=== PATIENT | male | born 1990 | race African-American/Black ===

== ENCOUNTER 2019-01-13 16:25 | Emergency (ER) | payer OTHER ==
[2019-01-13] MEDS ORDERED: KETOROLAC TROMETHAMINE 60 MG/2 ML SDV IM ONE (16:56)
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
[2019-01-13 17:53] LABS: A TYPE INFLUENZA AG NEGATIVE (NEGATIVE); B INFLUENZA AG NEGATIVE (NEGATIVE)
[2019-01-13 18:21] VITALS: BP 148/82
== END 2019-01-13 18:23 | disposition home or self-care (01) ==
LOC: ER 16:25
DX: J02.9 Acute pharyngitis, unspecified (principal); J06.9 Acute upper respiratory infection, unspecified; R09.81 Nasal congestion; R05 Cough; R50.9 Fever, unspecified; M79.10 Myalgia, unspecified site
CPT/HCPCS: 99283; 96372; 87070; 87880; 87804; J1885

== ENCOUNTER 2019-05-29 10:34 | Emergency (ER) | payer OTHER ==
[2019-05-29 10:57] VITALS: BP 153/95
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
== END 2019-05-29 12:23 | disposition home or self-care (01) ==
LOC: ER 10:34
DX: J02.0 Streptococcal pharyngitis (principal)
CPT/HCPCS: 87880; 99283

== ENCOUNTER 2019-06-17 11:23 | Emergency (ER) | payer OTHER ==
[2019-06-17] MEDS ORDERED: DIPH/PERTUSS(ACELL)/TETANUS VAC/PF 0.5 ML SYR (>=10YO) IM ONE (11:32)
[2019-06-17] MEDS ORDERED: BUPIVACAINE HCL 0.5 % INJ/PF 30 ML SDV INJ ONE (11:39)
--- NOTE | 2019-06-17 11:41 | ER Document Report ---
HPI - HPI Patient complains to provider of: Finger injury Time Seen by Provider: 06/17/19 11:27 Onset: Just prior to arrival Onset/Duration: Sudden Pain Level: Denies Context: Patient states that he got angry and hit a jar on his dresser that broke. Patient with laceration to the right third finger. Patient is right-hand dominant and uncertain with his last tetanus immunization was. Exacerbated by: Movement Relieved by: Denies Similar symptoms previously: No Recently seen / treated by doctor: No - ROS ROS below otherwise negative: Yes Systems Reviewed and Negative: Yes All other systems reviewed and negative - NEURO Neurology: DENIES: Weakness - GASTROINTESTINAL Gastrointestinal: DENIES: Nausea - MUSCULOSKELETAL Musculoskeletal: DENIES: Extremity pain - DERM Skin Color: Normal Skin Problems: Laceration Past Medical History - General Information source: Patient - Social History Smoking Status: Never Smoker Chew tobacco use (# tins/day): No Frequency of alcohol use: Occasional Drug Abuse: Marijuana Lives with: Family Family History: Reviewed & Not Pertinent Patient has homicidal ideation: No Psychiatric Medical History: Reports: Hx Depression Surgical Hx: Negative - Immunizations Hx Diphtheria, Pertussis, Tetanus Vaccination: No Vertical Provider Document - CONSTITUTIONAL Agree With Documented VS: Yes Exam Limitations: No Limitations General Appearance: WD/WN, No Apparent Distress - INFECTION CONTROL TRAVEL OUTSIDE OF THE [place] IN LAST 30 DAYS: No - HEENT HEENT: Atraumatic, Normocephalic - NECK Neck: Normal Inspection, Supple - RESPIRATORY Respiratory: Breath Sounds Normal, No Respiratory Distress - CARDIOVASCULAR Cardiovascular: Regular Rhythm, No Murmur, Tachycardia Pulses: Normal: Radial - MUSCULOSKELETAL/EXTREMETIES Musculoskeletal/Extremeties: CECY, FROM Notes: No tendon deficit to the right third finger, normal strength against resistance with flexion and extension - NEURO Level of Consciousness: Awake, Alert - Patient anxious when looking at wound Motor/Sensory: No Motor Deficit - DERM Integumentary: Warm, Dry, Laceration - 5 cm Laceration to right third finger, with nail involvement, bleeding controlled with dressing Course - Vital Signs Vital signs: Temp Pulse Resp BP Pulse Ox 98.8 F 108 H 16 127/94 H 100 06/17/19 11:32 06/17/19 11:27 06/17/19 11:27 06/17/19 11:27 06/17/19 11:27 - Diagnostic Test Radiology reviewed: Image reviewed, Reports reviewed Procedures - Laceration/Wound Repair Right Finger 3rd digit Wound length (cm): 5 Wound's Depth, Shape: Irregular, Flap Anesthetic type: 0.5% Bupivacaine Wound explored: Clean Wound Repaired With: Sutures Suture Size/Type: 5:0, Nylon Number of Sutures: 11 Layer Closure?: No Post-procedure wound care: Sterile dressing applied Post-procedure NV exam normal: Yes Complications: No Discharge - Discharge Clinical Impression: Finger laceration Qualifiers: Encounter type: initial encounter Finger: middle finger Damage to nail status: with damage Foreign body presence: without foreign body Laterality: right Qualified Code(s): S61.312A - Laceration without foreign body of right middle finger with damage to nail, initial encounter Condition: Stable Disposition: HOME, SELF-CARE Instructions: Dressing Instructions for Open Wounds ([facility]), Laceration Care ([facility]), Tetanus Immunization Given ([facility]) Additional Instructions: Return immediately for any new or worsening symptoms: Redness, streaks, pus, fever or any concerning new symptoms Followup with your primary care provider, call tomorrow to make a followup appointment Suture removal in 10 days Referrals: [facility] [Primary Care [facility]] - Follow up as needed
--- NOTE | 2019-06-17 12:23 | RADIOLOGY REPORT (SQ) ---
EXAM DESCRIPTION: FINGER RIGHT IMAGES COMPLETED DATE/TIME: 06/17/2019 11:48 am REASON FOR STUDY: finger injury with lac, ?FB COMPARISON: None. NUMBER OF VIEWS: Three views. TECHNIQUE: AP, lateral, and oblique images acquired of the right third finger. LIMITATIONS: None. FINDINGS: MINERALIZATION: Normal. BONES: No acute fracture or dislocation. No worrisome bone lesions. SOFT TISSUES: Soft tissue laceration along the radial aspect of the distal 3rd digit. No radiopaque foreign body. OTHER: No other significant finding. IMPRESSION: Laceration along the roof radial aspect of the distal 3rd digit. No acute bony abnormal ity. No radiopaque foreign body. COMMENT: SITE OF TRAUMA/COMPLAINT MARKED/STAMP COMPLETED: NO. TECHNICAL DOCUMENTATION: JOB ID: [id number] 2010 [employer]- All Rights Reserved Reading location - IP/workstation name: [email or web address]
[2019-06-17 13:07] VITALS: BP 126/86
== END 2019-06-17 13:15 | disposition home or self-care (01) ==
LOC: ER 11:23
DX: S61.312A Laceration without foreign body of right middle finger with damage to nail, initial encounter (principal); W18.02XA Striking against glass with subsequent fall, initial encounter; Y92.009 Unspecified place in unspecified non-institutional (private) residence as the place of occurrence of the external cause; Z23 Encounter for immunization
CPT/HCPCS: 99283; 90471; 73140; 90715; 12002; J3490

== ENCOUNTER 2019-07-05 15:16 | Emergency (ER) | payer OTHER ==
[2019-07-05 15:26] VITALS: BP 149/88
--- NOTE | 2019-07-05 16:07 | ER Document Report ---
HPI - HPI Patient complains to provider of: suture wound recheck Time Seen by Provider: 07/05/19 16:02 Onset: Other Onset/Duration: Sudden Pain Level: 1 Context: 29-year-old male presents to the emergency department with report that up June 16 he cut his right middle finger on a jar. He was treated with sutures here in the emergency department. He reports this past Saturday he had the sutures removed at the [place]. He reports yesterday he noticed some drainage from the site. His aunt looked at the finger and thought it might be infected. He denies fever vomiting diarrhea. Denies pain to the finger. No drainage today. Is right-handed. Associated Symptoms: None Exacerbated by: Denies Relieved by: Denies Similar symptoms previously: No Recently seen / treated by doctor: Yes - REPRODUCTIVE Reproductive: DENIES: : - MUSCULOSKELETAL Musculoskeletal: REPORTS: Extremity pain Past Medical History - General Information source: Patient - Social History Smoking Status: Never Smoker Chew tobacco use (# tins/day): No Frequency of alcohol use: None Drug Abuse: None Family History: Reviewed & Not Pertinent Patient has homicidal ideation: No Psychiatric Medical History: Reports: Hx Depression Surgical Hx: Negative - Immunizations Hx Diphtheria, Pertussis, Tetanus Vaccination: No Vertical Provider Document - CONSTITUTIONAL Agree With Documented VS: Yes Exam Limitations: No Limitations General Appearance: WD/WN, No Apparent Distress - INFECTION CONTROL TRAVEL OUTSIDE OF THE [place] IN LAST 30 DAYS: No - HEENT HEENT: Atraumatic, Normocephalic - NECK Neck: Supple - RESPIRATORY Respiratory: No Respiratory Distress - CARDIOVASCULAR Cardiovascular: Regular Rate - MUSCULOSKELETAL/EXTREMETIES Musculoskeletal/Extremeties: MAEW, FROM, Non-Tender - Right middle finger palmar side with healing laceration noted. Site benign no erythema no swelling no warmth no redness, no discharge. Cap refill less than 2 seconds radial pulse 3+ - NEURO Level of Consciousness: Awake, Alert, Appropriate Motor/Sensory: No Motor Deficit - DERM Integumentary: Warm, Dry Course - Re-evaluation Re-evalutation: 07/05/19 16:10 Patient presents with concerned that his right middle finger may be infected. He reports he received sutures here June 16 after he cut his finger on a jar. He recently had the sutures removed at the [place] office June 30. He reports yesterday some drainage from the site. No drainage today. Finger looks benign no erythema no swelling no warmth with healing wound noted. Patient was instructed on the importance of keeping the finger clean and continue to monitor for signs of infection. He was instructed on signs and symptoms of infection. He was also instructed to return here immediately for any of those signs and [facility]. He verbalized understanding to all instructions. - Vital Signs Vital signs: Temp Pulse Resp BP Pulse Ox 98.7 F 99 149/88 H 95 07/05/19 16:01 07/05/19 15:24 07/05/19 15:24 07/05/19 15:24 Discharge - Discharge Clinical Impression: finger suture wound check Condition: Stable Disposition: HOME, SELF-CARE Additional Instructions: *You have been evaluated for laceration suture wound recheck *Continue to monitor your finger for any signs of infection such as redness swelling warmth pain *Keep your finger clean as discussed *[facility] *Return to the emergency department for any signs of infection as discussed, concerns, needs Referrals: [facility] [Primary Care [facility]] - Follow up in 1 week
== END 2019-07-05 16:06 | disposition home or self-care (01) ==
LOC: ER 15:16
DX: S61.212D Laceration without foreign body of right middle finger without damage to nail, subsequent encounter (principal); W25.XXXD Contact with sharp glass, subsequent encounter
CPT/HCPCS: 99282

== ENCOUNTER 2019-09-03 09:27 | Emergency (ER) | payer OTHER ==
[2019-09-03] MEDS ORDERED: IBUPROFEN 800 MG TABLET PO ONE (10:44)
--- NOTE | 2019-09-03 10:46 | ER Document Report ---
ED Medical Screen (RME) - General Chief Complaint: Abscess Stated Complaint: SHOULDER ABSCESS Time Seen by Provider: 09/03/19 10:44 Primary Care Provider: [facility] [Primary Care Provider] - Follow up as needed Mode of Arrival: Ambulatory Information source: Patient Notes: 29-year-old male presented to ED for abscess to the right upper arm. He states he had a hair bump about 4 days ago and was messing with it and then it became much larger. He states his girlfriend was then putting hot rags on it and it was draining pus but then yesterday it stopped draining and became much larger and more painful. He states it is a level 3 out of 5 achy pain. He states he did take 800 ibuprofen yesterday but has not had anything today so we will give him 800 mg of ibuprofen this morning. He will need an I&D and antibiotics for this abscess. I have greeted and performed a rapid initial assessment of this patient. A comprehensive ED assessment and evaluation of the patient, analysis of test results and completion of medical decision making process will be conducted by an additional ED providers. TRAVEL OUTSIDE OF THE [place] IN LAST 30 DAYS: No - Related Data Allergies/Adverse Reactions: No Known Drug Allergies Adverse Reaction (Verified 07/05/19 16:00) Past Medical History Psychiatric Medical History: Reports: Hx Depression - Immunizations Hx Diphtheria, Pertussis, Tetanus Vaccination: No Physical Exam - Vital signs Vitals: Temp Pulse Resp BP Pulse Ox 99.3 F 102 H 20 144/95 H 100 09/03/19 09:31 09/03/19 09:31 09/03/19 09:31 09/03/19 09:31 09/03/19 09:31 Course - Vital Signs Vital signs: Temp Pulse Resp BP Pulse Ox 99.3 F 102 H 20 144/95 H 100 09/03/19 09:31 09/03/19 09:31 09/03/19 09:31 09/03/19 09:31 09/03/19 09:31 Doctor's Discharge - Discharge Referrals: [facility] [Primary Care [facility]] - Follow up as needed
[2019-09-03] MEDS ORDERED: SULFAMETHOXAZOLE/TRIMETHOPRIM 800-160 MG TABLET PO ONE (11:33)
[2019-09-03] MEDS ORDERED: LIDOCAINE 1% INJ-PF (10 MG/ML) 30 ML SDV INJ ONE (11:33)
--- NOTE | 2019-09-03 12:13 | ER Document Report ---
Entered by EBONIE DAHL SCRIBE 09/03/19 1129 Acting as scribe for:JACKIE GALLARDO MD ED Skin Rash/Insect Bite/Abscs - General Chief Complaint: Abscess Stated Complaint: SHOULDER ABSCESS Time Seen by Provider: 09/03/19 10:44 Primary Care Provider: PAUL,YUDITH [Primary Care Provider] - Follow up as needed Mode of Arrival: Ambulatory Information source: Patient Notes: This 29 year old male patient presents to the emergency department today with complaints of an abscess to his right upper arm. Patient states he has noticed this area for about 4 days now. He states his significant other put warm compresses on the area and it came to a head and he drained some pus and blood out but mentions that it has now gotten larger, more painful, and is no longer draining. TRAVEL OUTSIDE OF THE [place] IN LAST 30 DAYS: No - Related Data Allergies/Adverse Reactions: No Known Drug Allergies Adverse Reaction (Verified 07/05/19 16:00) Past Medical History - General Information source: Patient - Social History Smoking Status: Never Smoker Cigarette use (# per day): No Chew tobacco use (# tins/day): No Frequency of alcohol use: Social Drug Abuse: None Lives with: Family Family History: Reviewed & Not Pertinent Psychiatric Medical History: Reports: Hx Depression Surgical Hx: Negative - Immunizations Hx Diphtheria, Pertussis, Tetanus Vaccination: No Review of Systems - Review of Systems Constitutional: No symptoms reported EENT: No symptoms reported Cardiovascular: No symptoms reported Respiratory: No symptoms reported Gastrointestinal: No symptoms reported Genitourinary: No symptoms reported Male Genitourinary: No symptoms reported Musculoskeletal: No symptoms reported Skin: See HPI, Lesions Hematologic/Lymphatic: No symptoms reported Neurological/Psychological: No symptoms reported -: Yes All other systems reviewed and negative Physical Exam - Vital signs Vitals: Temp Pulse Resp BP Pulse Ox 99.3 F 102 H 20 144/95 H 100 09/03/19 09:31 09/03/19 09:31 09/03/19 09:09/03/19 09:09/03/19 09:31 - Notes Notes: Physical Exam: General: Alert, appears well. HEENT: Normocephalic. Atraumatic. PERRLA. Extraocular movements intact. Oropharynx clear. Neck: Supple. Respiratory: No respiratory distress. Abdominal: Normal Inspection. No distension. Extremities: Moves all four extremities. Neurological: Normal cognition. AAOx4. Normal speech. Psychological: Normal affect. Normal Mood. Skin: Large area of erythema, warmth, and induration with central scab where previous drainage was expressed from. Course - Vital Signs Vital signs: Temp Pulse Resp BP Pulse Ox 99.3 F 102 H 20 144/95 H 100 09/03/19 09:09/03/19 09:09/03/19 09:09/03/19 09:09/03/19 09:31 Procedures - Incision and Drainage Right Upper Arm Type: Simple Anesthetic type: 1% Lidocaine mL's of anesthetic: 12 Blade size: 11 I&D procedure: Shurclens applied, Iodoform packing placed Incision Method: Incision made by scalpel Amount/type of drainage: 3 ml Discharge - Discharge Clinical Impression: Encounter for incision and drainage procedure, Abscess Condition: Stable Disposition: HOME, SELF-CARE Additional Instructions: Abscess You have an abscess (boil). This a pus-forming infection, usually due to staph. Some boils may be left to drain on their own, but most require lancing. From the time the tender lump first appears, it may be three or four days before the abscess is ready to wesly. Local heat and rest help at this stage of treatment. An antibiotic may prevent spread of the infection. Once the abscess is opened, packing may be placed into it. This is done so pus is not sealed inside by premature closure of the cavity. The packing will be removed at your follow-up visit or you may be advised to remove it yourself at home. Sometimes this packing must be replaced a few times during healing. The wound will heal with surprisingly little scar. Depending on the size and location of an abscess, healing can take one to four weeks. You may shower and wash the area around the incision site two or three times a day. Antibiotics may be prescribed, but are usually not necessary after an abscess has been drained. If you develop fever, chilling, worsening pain, or increasing swelling in the area, call the doctor or return immediately. Take the medications as prescribed. Remove the gauze packing in 2 days. Pour peroxide down in the wound after you remove the gauze packing. Use Q-tips dipped in peroxide to probe the wound in all directions as deep as you can go. Twirl the Q-tips around as you are getting deep into the wound. Do this a few times a day every day to keep the wound open so that it heals from the inside out. RETURN TO THE EMERGENCY ROOM IF ANY NEW OR WORSENING SYMPTOMS. Prescriptions: Sulfamethoxazole/Trimethoprim [Bactrim Ds Tablet] 2 tab PO BID #28 tablet Cephalexin Monohydrate [Keflex 500 mg Capsule] 500 mg PO QID #28 capsule Oxycodone HCl/Acetaminophen [Percocet 5-325 mg Tablet] 1 tab PO ASDIR PRN #12 tablet PRN Reason: Referrals: [facility] [Primary Care Provider] - Follow up as needed I personally performed the services described in the documentation, reviewed and edited the documentation which was dictated to the scribe in my presence, and it accurately records my words and actions.
[2019-09-03] MEDS ORDERED: CEPHALEXIN 500 MG CAPSULE PO ONE (12:31)
[2019-09-03] MEDS: OXYCODONE-ACETAMINOPHEN 5-325 MG TABLET PO ONE ×2 (12:35→12:39)
[2019-09-03 13:21] VITALS: BP 138/81
== END 2019-09-03 13:21 | disposition home or self-care (01) ==
LOC: ER 09:27
DX: L02.413 Cutaneous abscess of right upper limb (principal)
CPT/HCPCS: 99282; 87070; 87077; 87186; 10060; J3490

== ENCOUNTER 2019-11-22 16:52 | Emergency (ER) | payer OTHER ==
[2019-11-22 17:02] VITALS: BP 144/74
--- NOTE | 2019-11-22 17:29 | ER Document Report ---
ED General - General Chief Complaint: Sore Throat Stated Complaint: SORE THROAT Time Seen by Provider: 11/22/19 17:18 Primary Care Provider: [facility] [Primary Care [facility]] - Follow up as needed Notes: CHIEF COMPLAINT: COVID testing HPI: 29-year-old male presenting for COVID testing. States recently tested positive. Bringing son in today because son has a scratchy throat he wants son tested for Coblator he would also like a COVID test today. Patient denies sore throat denies shortness of breath cough but has had slight runny nose ROS: See HPI - all other systems were reviewed and are otherwise negative Constitutional: no fever Eyes: no drainage, no blurred vision ENT: + runny nose, no sore throat Cardiovascular: no chest pain Resp: no SOB, no cough GI: no vomiting, no diarrhea, no abdominal pain : no dysuria Integumentary: no rash Allergy: no hives Musculoskeletal: no extremity pain or swelling Neurological: no numbness/tingling, no weakness MEDICATIONS: I agree with the patient medications as charted by the RN. ALLERGIES: I agree with the allergies as charted by the RN. PAST MEDICAL HISTORY/PAST SURGICAL HISTORY: Reviewed and agree as charted by RN. SOCIAL HISTORY: Reviewed and agree as charted by RN. FAMILY HISTORY: No significant familial comorbid conditions directly related to patient complaint EXAM: Reviewed vital signs as charted by RN. CONSTITUTIONAL: Alert and oriented and responds appropriately to questions. Well-appearing; well-nourished HEAD: Normocephalic; atraumatic EYES: PERRL; Conjunctivae clear, sclerae non-icteric ENT: normal nose; clear rhinorrhea; moist mucous membranes; pharynx without lesions noted, no uvula edema or deviation, no tonsillar hypertrophy, phonation normal NECK: Supple without meningismus; non-tender; no cervical lymphadenopathy, no masses CARD: RRR; no murmurs, no clicks, no rubs, no gallops; symmetric distal pulses RESP: Normal chest excursion without splinting or tachypnea; breath sounds clear and equal bilaterally; no wheezes, no rhonchi, no rales, pulse oximetry ABD/GI: Normal bowel sounds; non-distended; soft, non-tender, no rebound, no guarding; no palpable organomegaly or masses. BACK: The back appears normal and is non-tender to palpation, there is no CVA tenderness EXT: Normal ROM in all joints; non-tender to palpation; no cyanosis, no effusions, no edema SKIN: Normal color for age and race; warm; dry; good turgor; no acute lesions noted NEURO: Moves all extremities equally; Motor and sensory function intact PSYCH: The patient's mood and manner are appropriate. Grooming and personal hygiene are appropriate. MDM: 29-year-old male basically requesting COVID testing. tested positive this week. He is here with his son to be tested. He has no symptoms other than runny nose. Will obtain COVID test he will self quarantine at home pending result TRAVEL OUTSIDE OF THE [place] IN LAST 30 DAYS: No - Related Data Allergies/Adverse Reactions: No Known Drug Allergies Adverse Reaction (Verified 07/05/19 16:00) Past Medical History - Social History Smoking Status: Unknown if Ever Smoked Family History: Reviewed & Not Pertinent Psychiatric Medical History: Reports: Hx Depression - Immunizations Hx Diphtheria, Pertussis, Tetanus Vaccination: No Physical Exam - Vital signs Vitals: Temp Pulse Resp BP Pulse Ox 98.9 F 88 20 144/74 H 99 11/22/19 17:11/22/19 17:11/22/19 17:01 11/22/19 17:01 11/22/19 17:01 Course - Vital Signs Vital signs: Temp Pulse Resp BP Pulse Ox 98.9 F 88 20 144/74 H 99 11/22/19 17:11/22/19 17:01 11/22/19 17:01 11/22/19 17:01 11/22/19 17:01 Discharge - Discharge Clinical Impression: Person under investigation for COVID-19 Condition: Stable Disposition: HOME, SELF-CARE Instructions: COVID-19 Guidance for Persons Under Investigation Additional Instructions: You are considered a person under investigation for COVID-19 at this time self quarantine at home pending her test results which may take 2 to 5 days. Someone from the hospital will contact you about your results. Follow-up with your primary care provider for reevaluation as needed return for worsening symptoms or condition Forms: Return to Work Referrals: [facility] [Primary Care Provider] - Follow up as needed
== END 2019-11-22 17:37 | disposition home or self-care (01) ==
LOC: ER 16:52
DX: Z20.828 Contact with and (suspected) exposure to other viral communicable diseases (principal); J34.89 Other specified disorders of nose and nasal sinuses
CPT/HCPCS: 99282; 87635; C9803

== ENCOUNTER 2020-01-14 17:46 | Emergency (ER) | payer OTHER ==
[2020-01-14] MEDS ORDERED: DEXAMETHASONE CONC 1 MG/ML SOLN PO ONE (18:35)
[2020-01-14] MEDS ORDERED: KETOROLAC TROMETHAMINE 60 MG/2 ML SDV IM ONE (18:35)
--- NOTE | 2020-01-14 18:43 | ER Document Report ---
ED General - General Chief Complaint: Sore Throat Stated Complaint: FEVER/COUGH/SORE THROAT Time Seen by Provider: 01/14/20 18:30 Primary Care Provider: YUDITH MILLER [Primary Care Provider] - Follow up as needed TRAVEL OUTSIDE OF THE [place] IN LAST 30 DAYS: No - HPI Notes: Patient is a 29-year-old male with no medical history who presents with sore throat and fever that began earlier today. He also reports nonproductive cough and myalgias. He denies any chest pain, shortness of breath, nausea, vomiting, abdominal pain, and diarrhea. He has young kids at home which prompted him to come to the ED to have testing done. - Related Data Allergies/Adverse Reactions: No Known Drug Allergies Adverse Reaction (Verified 01/14/20 19:06) Past Medical History - General Information source: Patient - Social History Smoking Status: Unknown if Ever Smoked Family History: Reviewed & Not Pertinent Psychiatric Medical History: Reports: Hx Depression - Immunizations Hx Diphtheria, Pertussis, Tetanus Vaccination: No Review of Systems - Review of Systems Constitutional: See HPI EENT: See HPI Cardiovascular: No symptoms reported Respiratory: See HPI Gastrointestinal: No symptoms reported Genitourinary: No symptoms reported Male Genitourinary: No symptoms reported Musculoskeletal: No symptoms reported Skin: No symptoms reported Hematologic/Lymphatic: No symptoms reported Neurological/Psychological: No symptoms reported Physical Exam - Vital signs Vitals: Temp Pulse Resp BP Pulse Ox 99.7 F 104 H 18 153/114 H 98 01/14/20 17:50 01/14/20 17:50 01/14/20 17:50 01/14/20 17:50 01/14/20 17:50 - Notes Notes: PHYSICAL EXAMINATION: VITALS: Vitals reviewed and within normal limits. GENERAL: Well-appearing, well-nourished and in no acute distress. HEAD: Atraumatic, normocephalic. EYES: Pupils equal, round, and reactive to light, extraocular movements intact, sclera anicteric, conjunctiva are normal. ENT: Nares patent. Moist mucous membranes. Oropharynx with tonsilar hypertrophy and erythema without exudates. NECK: Normal range of motion, supple without lymphadenopathy. LUNGS: Breath sounds clear to auscultation bilaterally and equal. No wheezes, rales, or rhonchi. HEART: Regular, rate, and rhythm without murmurs. EXTREMITIES: Normal range of motion, no pitting or edema. No cyanosis. NEUROLOGICAL: No focal neurological deficits. Moves all extremities spontaneously and on command. PSYCH: Normal mood, normal affect. SKIN: Warm, Dry, normal turgor, no rashes or lesions noted. Course - Re-evaluation Re-evalutation: Patient is a 29-year-old male who presents with sore throat and fever that began earlier today. Patient is afebrile and vital signs are normal. On exam, tonsillar hypertrophy bilaterally with erythema but no exudates. Lungs clear to auscultation bilaterally. History and exam are not consistent with a retropharyngeal abscess or peritonsillar abscess. Airway is patent. No difficulty handling oral secretions. Rapid flu and strep swabs are negative. COVID-19 swab is pending. Patient was treated with a dose of dexamethasone, IM toradol and advised on symptomatic care. Patient instructed to quarantine at home until COVID-19 results have come through and he is notified. Return precautions and follow-up instructions given. Patient is in agreement with this plan and has verbalized understanding of return precautions and the need for primary care follow-up in the next 24-72 hours. - Vital Signs Vital signs: Temp Pulse Resp BP Pulse Ox 99.7 F 104 H 18 153/114 H 98 01/14/20 17:50 01/14/20 17:50 01/14/20 17:50 01/14/20 17:50 01/14/20 17:50 Discharge - Discharge Clinical Impression: Sore throat, Cough Disposition: HOME, SELF-CARE Instructions: COVID-19 Guidance for Persons Under Investigation, Sore Throat ([facility]) Referrals: [facility] [Primary [facility]] - Follow up as needed
[2020-01-14 19:58] LABS: A TYPE INFLUENZA AG NEGATIVE (NEGATIVE); B INFLUENZA AG NEGATIVE (NEGATIVE)
[2020-01-14 20:17] VITALS: BP 137/78
== END 2020-01-14 20:17 | disposition home or self-care (01) ==
LOC: ER 17:46
DX: J02.9 Acute pharyngitis, unspecified (principal); R50.9 Fever, unspecified; R05 Cough; M79.10 Myalgia, unspecified site; Z20.828 Contact with and (suspected) exposure to other viral communicable diseases
CPT/HCPCS: 99284; 96372; 87070; 87880; 87635; 87804; J1885; J8540; C9803